=== PATIENT | female | born 1995 | race Hispanic/Latino ===

== ENCOUNTER 2016-08-11 17:54 | Emergency (ER) | payer OTHER ==
[~2016-08-11] VITALS: Ht 167.6 cm; Wt 90.0 kg
[~2016-08-11 17:54] MED LIST: BUSP7.5T5 PO; FERR-83 PO
[2016-08-11 18:13] VITALS: BP 106/60; PULSE 78; RESP 16; O2SAT 98
--- NOTE | 2016-08-11 19:33 | ED.REPORT ---
HPI-Extremity Problem Lower Date of Service Aug 11, 2016 ED Provider: Raj Morillo MD Pt is a 21 y/o female presenting to the ED due to broken toenail which occurred 2 months ago. The patient's 2 year old son slammed the door on her right foot causing her to partially break her right great toenail. The son apparently does this often. She decided to come in because she is unable to pull it off and wants us to do it. Nursing Notes Stated Complaint: BROKEN TOE NAIL Chief Complaint: General Complaint Nursing Notes Reviewed: Yes Allergies: Coded Allergies: sertraline (Verified Allergy, Unknown, caused stuttering, 02/06/16) Scheduled Buspirone (Buspirone) 7.5 Mg Tablet 7.5 MG PO BID Ferrous Sulfate (Ferrous Sulfate) 325 Mg Tablet 325 MG PO DAILY General Time Seen by MD: 19:25 Chief Complaint Other (broken toenail) Hx Obtained From: Patient Arrived By: Walk-in Onset Occurred: More than a week ago... (2 months) Symptom Duration: Since onset Caused by: Blunt injury Location: : Toe right 1 Quality: Painful Severity: Current: Mild Severity: Maximum: Moderate Similar Sx Previous: Yes Past Medical History Past Medical History Depression Upper back lipoma Ingrown toenails Past Surgical History Cholecystectomy Ambulatory Status Independent Review of Systems Constitutional: Denies: Chills, Fever Musculoskeletal: Reports: Extremity pain Complete sys rev & neg: except as marked. Physical Exam Initial Vital Signs Vital Signs (First) Date Time Temp Pulse Resp B/P Pulse Ox O2 Delivery O2 Flow Rate FiO2 08/11/16 18:13 36.7 78 16 106/60 98 Room Air Initial VS: Reviewed, Vital signs normal Head / Eyes: Atraumatic, Normocephalic, PERRL ENT: Mucous membranes moist, Conjunctiva normal, No scleral icterus Neck: Supple, Full range of motion Respiratory: No respiratory distress Cardiovascular: Intact distal pulses Abdomen / GI: Soft, No distention Upper Extremities: Vascular intact, Neuro intact, No swelling Skin: Warm, Dry, No cyanosis Neurologic: Alert, Oriented, Nonfocal Psychiatric: Mood/affect normal, Behavior normal, Normal thought content Lower Extremity / Pelvis / MS: Full range of motion, No deformity, Neurologic intact, Vascular intact Ankle / Foot: Full range of motion, No deformity, Neurologic intact, Vascular intact Right great toenail absent. Remnant of toenail about lateral nail fold that was irritating her. General/Constitutional: Awake, Alert, No acute distress, Cooperative, Not toxic appearing Procedures Procedure Notes: Partial toenail removal: Grabbed with foreceps and removed with rapid traction. Placed bandaid. Re-Eval/Medical Decision Med Decision/Clinical Course Pt is a 21 y/o female presenting to the ED due to broken toenail which occurred 2 months ago. The patient's 2 year old son slammed the door on her right foot causing her to partially break her right great toenail. She would like to remainder of her toenail removed as it is constant on her sock and bothering her. There is no evidence of paronychia or infection. The remnant of toenail is very small and a sling to the patient that doing a digital block on her toe would likely be more painful than just quickly removing the remnant of toenail by traction. She opted for the latter. The toenail was removed as documented above. She is advised to return right away for any signs of infection. At this time, I feel that she is appropriate for discharge. Prior to discharge follow-up and return precautions were reviewed in detail with the patient who verbalized understanding and agreement with the plan. The patient was discharged in stable condition. Re-Evaluation/Progress : Time of Eval: 19:41 Re-Evaluation/Progress Note: Pt rechecked. Informed pt of plan for treatment. Pt understands and agrees with plan for treatment. F/U instructions and RTER warnings given. All questions addressed. Counseled Regarding: Diagnosis, Need for follow-up, When/why to return to ED Discharge & Departure Impression: Primary Impression: Torn toenail Additional Impression: Toe pain, right Disposition: Home Discharge Condition All VS Reviewed: Yes Condition: Stable Additional Instructions: Keep the area clean and dry. See a medical professional if you develop redness, swelling, pain, discharge of pus, fever, or for other concerning symptoms. Referrals: Navya Friedman MD (PCP) Scribe Attestation Portions of this note were transcribed by Merrill Conte. I, Dr. Morillo, personally performed the history, physical exam and medical decision-making; I reviewed and confirmed the accuracy of the information in the transcribed note. Signed by Bill Kang, 08/11/16 - 1944 copies to: Navya Friedman MD,Raj Maciel MD Aug 11, 2016 19:32 MERRILL CONTE Aug 11, 2016 19:40
== END 2016-08-11 19:50 | disposition home or self-care (01) ==
LOC: SED 17:54
DX: S91.201A Unspecified open wound of right great toe with damage to nail, initial encounter (principal); M79.674 Pain in right toe(s); W22.8XXA Striking against or struck by other objects, initial encounter; Y93.9 Activity, unspecified; Y92.9 Unspecified place or not applicable; Y99.9 Unspecified external cause status; Z88.8 Allergy status to other drugs, medicaments and biological substances

== ENCOUNTER 2016-09-08 17:55 | Emergency (ER) | payer OTHER ==
[~2016-09-08] VITALS: Ht 167.6 cm; Wt 104.5 kg
[2016-09-08 18:00] VITALS: BP 144/85; PULSE 86; RESP 16; O2SAT 98
--- NOTE | 2016-09-08 19:20 | DRSVH ---
PROCEDURE: X-RAY CHEST ONE VIEW, PORTABLE ([id number]) INDICATIONS: chest pain TECHNIQUE: One view of the chest was acquired. COMPARISON: None. FINDINGS: Surgical changes and devices: None. Lungs and pleura: No pleural effusions or pneumothorax. Lungs are clear. Mediastinum: Mediastinal contours appear normal. Heart size is normal. Bones and chest wall: No suspicious bony lesions. Overlying soft tissues appear unremarkable. IMPRESSION: Acute disease is not seen the AP upright chest. Dictated by: Michael Bradley M.D. on 09/08/2016 at 19:14 Approved by: Michael Bradley M.D. on 09/08/2016 at 19:18
[2016-09-08 19:56] LABS: BASOPHILS % (AUTO) 0.1 % (0-3); EOSINOPHILS % (AUTO) 0.8 % (0-5); MONOCYTES % (AUTO) 7.4 % (4-12); Mean Corpuscular Hemoglobin 25.2 pg (27.0-35.0); Mean Corpuscular Volume 78.3 fL (81-100); NEUTROPHILS % (AUTO) 68.4 % (40-74); Platelet Count 351 bil/L (150-400)
[2016-09-08 20:21] LABS: TROPONIN T < 0.010 ug/L (0.0-0.011)
[2016-09-08 20:26] VITALS: BP 99/48; PULSE 72; RESP 20; O2SAT 99
[2016-09-08 20:29] LABS: Magnesium 1.7 mg/dL (1.6-2.6)
--- NOTE | 2016-09-08 20:57 | ED.REPORT ---
HPI-Chest Pain Under 40 Date of Service Sep 08, 2016 ED Provider: Marvin Barboza MD Pt is an otherwise healthy 21 year old female with a history of anxiety who presents to the ED complaining of sharp substernal chest pain onset 17:00 today while she was walking at work. The pt c/o associated SOB and dyspnea. She denies cough. The pt reports that she does not take control, but she takes anxiety medication. She denies recent physical labor aside from picking up her 50lb son. Pt denies smoking and drinking alcohol. She reports abdominal pain and nausea onset yesterday. Nursing Notes Stated Complaint: CHEST PAIN,SHARP STABBING Chief Complaint: Chest Pain Nursing Notes Reviewed: Yes Allergies: Coded Allergies: sertraline (Verified Allergy, Unknown, caused stuttering, 02/06/16) Scheduled Buspirone (Buspirone) 7.5 Mg Tablet 7.5 MG PO BID Ferrous Sulfate (Ferrous Sulfate) 325 Mg Tablet 325 MG PO DAILY Scheduled PRN Ibuprofen (Ibuprofen) 600 Mg Tablet 600 MG PO QID PRN PRN For Pain General Time Seen by MD: 20:56 Chief Complaint Chest pain Hx Obtained From: Patient Arrived By: Walk-in Sudden in Onset?: Yes Onset Occurred: 5 - 8 hours ago Symptom Duration: Since onset Location: : Substernal Quality: Sharp Radiation: : Does not radiate Severity: Current: Moderate Severity: Maximum: Moderate Recent Healthcare: Recent doctor visit Similar Sx Previous: No Risk Factors )( PE Risk Stratification No Coagulation Disorder, No Estrogen Medicine / BCP's, No Immobilization, No Malignancy, No , No , No Previous DVT, No Surgery Last 60 Days PERC Rule PERC Result: All PERC criteria "No" Past Medical History Past Medical History Notes: PCP - [facility] Past Medical History Upper back lipoma Ingrown toenails Anxiety Reports: Depression Past Surgical History Cholecystectomy Smoking History Former Smoker Social History Alcohol Use: Denies alcohol use Drug Use: Denies drug use Other Social History: Good social support Ambulatory Status Independent Review of Systems Respiratory: Reports: Dyspnea on exertion, Shortness of breath, Denies: Non-productive cough Cardiovascular: Reports: Chest pain GI: Reports: Abdominal pain, Nausea Complete sys rev & neg: except as marked. Physical Exam Initial Vital Signs Vital Signs (First) Date Time Temp Pulse Resp B/P Pulse Ox O2 Delivery O2 Flow Rate FiO2 09/08/16 18:00 37.2 86 16 144/85 98 Room Air Initial VS: Reviewed Head / Eyes: Atraumatic, Normocephalic Neck: Supple, Full range of motion Extremities: Vascular intact, Neuro intact Skin: Warm, Dry, No cyanosis Neurologic: Alert, Oriented, Nonfocal Psychiatric: Mood/affect normal, Behavior normal General/Constitutional: Awake, Alert Respiratory / Chest: Atraumatic, Breath sounds NL, Breath sounds = bilat Pain with pressure palpation of left chest wall Cardiovascular: Heart rate NL, Regular rhythm, Heart sounds NL, No gallop, No murmurs Interpretation & Diagnostics Urine test - Negative Lab Results Interpretation Result Diagram: 09/08/16193909/08/161939 Test 09/08/16 19:40 White Blood Count 8.3th/mm3 (3.8-10.1) Red Blood Count 5.15mil/mm3 (3.90-5.20) Hemoglobin 13.0g/dL (12.0-15.6) Hematocrit 40.3% (35.0-46.0) Mean Corpuscular Volume 78.3fL (81-100) Mean Corpuscular Hemoglobin 25.2pg (27.0-35.0) Mean Corpuscular Hemoglobin Concent 32.3% (32.0-37.0) Red Cell Distribution Width 15.7% (12.3-15.4) Platelet Count 351bil/L (150-400) Neutrophils (%) (Auto) 68.4% (40-74) Lymphocytes (%) (Auto) 22.9% (14-46) Monocytes (%) (Auto) 7.4% (4-12) Eosinophils (%) (Auto) 0.8% (0-5) Basophils (%) (Auto) 0.1% (0-3) Sodium Level 136mEq/L (134-144) Potassium Level 3.7mEq/L (3.5-5.2) Chloride Level 99mEq/L (97-108) Carbon Dioxide Level 21mmol/L (18-29) Blood Urea Nitrogen 11mg/dL (6-20) Creatinine 0.65mg/dL (0.57-1.00) Estimat Glomerular Filtration Rate 163mL/min (>59) Glucose Level 96mg/dL (60-99) Calcium Level 9.2mg/dL (8.5-10.1) Magnesium Level 1.7mg/dL (1.6-2.6) Total Bilirubin 0.6mg/dL (0.0-1.2) Aspartate Amino Transf (AST/SGOT) 18U/L (0-50) Alanine Aminotransferase (ALT/SGPT) 16U/L (0-32) Alkaline Phosphatase 93U/L (25-150) Troponin T < 0.010ug/L (0.0-0.011) Total Protein 7.3g/dL (6.4-8.4) Albumin 4.2g/dL (3.4-5.0) Hold Felix Top Tube Received (Received) ECG Interpretation ECG Interpretation: Sinus rhythm with rate of 72 Time: 18:18 Interpreted by: ED physician X-Ray Chest Interpretation Chest Xray Interpretation: IMPRESSION: Acute disease is not seen the AP upright chest. Dictated by: Michael Bradley M.D. on 09/08/2016 at 19:14 View: Portable, 1 view Interpretation / Wet Read by: Interpret - Radiologist Re-Eval/Medical Decision Source of Hx: Old records Re-Evaluation/Progress : Time of Eval: 21:14 Re-Evaluation/Progress Note: Pt rechecked. Informed pt of plan for discharge. Pt understands and agrees with plan for discharge. F/U instructions and RTER warnings given. All questions addressed. Counseled Regarding: Diagnosis, Lab results, Need for follow-up, When/why to return to ED Discharge & Departure Primary Impression: Costochondritis, acute Disposition: Home Discharge Condition All VS Reviewed: Yes Condition: Stable Patient Instructions: Costochondritis (ED) Additional Instructions: Emergency department evaluation today included review, examination labs chest x- ray and ECG. There is no evidence of probably related to heart or lungs, chest wall tenderness is suggestive of inflammation in the chest wall (costochondritis ). For this ibuprofen should be effective. 600 mg 3-4 times a day take with food. Return emergency Department for increasing shortness of breath increasing chest pain or fever. Follow-up with primary care next week. Referrals: Navya Friedman MD (PCP) [facility] Scribe Attestation Portions of this note were transcribed by Navya Portillo. IDr. Barboza personally performed the history, physical exam and medical decision-making; I reviewed and confirmed the accuracy of the information in the transcribed note. Signed by : Bill Bass, 09/08/16 and 23:40. . copies to: Navya Friedman MD; [facility] Marvin Barboza MD Sep 08, 2016 20:57 Navya Carmona Sep 08, 2016 21:19
[2016-09-08] MEDS ORDERED: IBUP-1827 PO (21:25)
== END 2016-09-08 21:45 | disposition home or self-care (01) ==
LOC: SED 17:55
DX: M94.0 Chondrocostal junction syndrome [Tietze] (principal); Z87.891 Personal history of nicotine dependence; Z88.8 Allergy status to other drugs, medicaments and biological substances